=== PATIENT | female | born 1940 | race Caucasian/White ===

== ENCOUNTER 2017-10-27 22:06 | Observation (INO) ==
--- NOTE | 2017-10-27 22:15 | Emergency Department Note ---
Disposition Clinical Impression: Near syncope, Dehydration, moderate Disposition: Admitted As Inpatient Condition: Fair Instructions: Fall Prevention for Older Adults (ED) Referrals: Richard Fabian DO [Primary Care Provider] - Forms: ED Satisfaction Letter Time of Disposition: 00:00 Fall HPI - General Chief Complaint: ED Fall Stated Complaint: fall at home Time Seen by Provider: 10/27/17 22:13 Source: patient Mode of arrival: EMS Limitations: no limitations Nursing Notes Reviewed: Yes Vital Signs Reviewed: Yes - History of Present Illness HPI Narrative: 77-year-old female who presented to the emergency department via EMS, patient sustained a fall at home hitting the back of her head. Patient is very hard of hearing. She reports pain in her neck, and in the back of her skull secondary to the fall. Patient denies any loss of consciousness. Patient reports that she has been not been feeling well for about 3-4 days. Her reports that today to try to check her blood pressure at home and her blood pressure was 50/30. Patient has been running a low-grade temperature at home as well. 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 Fall From: standing Place Fall Occurred: home Loss of Consciousness: none Prolonged Down Time?: no Symptoms Prior to Fall: lightheadedness, dizziness Context: tripped/slipped Location of injury: head, neck Severity: moderate Severity scale (1-10): 5 Quality: stabbing Associated symptoms (after fall): Reports: headache, neck pain, lightheaded - Related Data Home Medications Medication Instructions Recorded Confirmed Acetaminophen/Diphenhydramine 1 tab PO HS 09/01/16 09/14/16 [Acetaminophen Pm Caplet] Aspirin Enteric Coated [Aspirin EC] 325 mg PO DAILY 09/01/16 09/14/16 Cholecalciferol (D-3) [Vitamin D] 1,000 unit PO DAILY 09/01/16 09/14/16 Diltiazem HCl [Diltiazem 24Hr Cd] 120 mg PO DAILY 09/01/16 09/14/16 HYDROcodone/Acet 5/325 mg [[place] 1 tab PO TID PRN 09/01/16 09/14/16 5-325 mg] Levothyroxine [Synthroid] 88 mcg PO DAILY 09/01/16 09/14/16 Losartan/Hydrochlorothiazide 1 tab PO DAILY 09/01/16 09/14/16 [Hyzaar 100-25 Tablet] Pravastatin Sodium [Pravachol] 20 mg PO DAILY 09/01/16 09/14/16 hydrOXYzine HCl [Hydroxyzine HCl] 50 mg PO Q6H PRN 09/01/16 09/14/16 L. Acidophilus/Pectin, [place] 1 cap PO DAILY 09/14/16 09/14/16 [Acidophilus Probiotic Capsule] cloNIDine HCl [CloNIDine HCl] 0.1 mg PO BID 09/14/16 09/14/16 Allergies Allergy/AdvReac Type Severity Reaction Status Date / Time acetaminophen [From Percocet] AdvReac See Verified 09/02/16 11:48 Comments caffeine [From Cafergot] AdvReac See Verified 09/02/16 11:48 Comments codeine AdvReac See Verified 09/02/16 11:48 Comments Ergotamine [From Cafergot] AdvReac See Verified 09/02/16 11:48 Comments Oxycodone [From Percocet] AdvReac See Verified 09/02/16 11:48 Comments All systems ED: reviewed and negative except as stated. Constitutional: Reports: other (Trauma to head and complains of pain in back of neck) Musculoskeletal: Reports: neck pain Neurological: Reports: headache, weakness Fall PMH - Past Medical History Medical history: Reports: arthritis, hyperlipidemia, hypertension, thyroid disease Psychiatric history: Reports: depression - Social History Smoking Status: Former smoker Alcohol use: Reports: occasionally Drug use: Reports: none Physical Exam - General Limitations: no limitations General appearance: alert, in no apparent distress - Head Head exam: atraumatic, normocephalic, normal inspection - Eye Eye exam: Present: normal appearance, PERRL, EOMI - Expanded Eye Exam Pupils: Left: reactive - ENT ENT exam: normal exam, normal oropharynx, mucous membranes moist - Expanded ENT Exam External ear exam: Present: normal external inspection Mouth exam: Present: normal external inspection Teeth exam: Present: normal inspection Throat exam: Present: normal inspection - Neck Neck exam: Present: normal inspection, full ROM, trachea midline - Chest Chest inspection: Present: normal inspection, symmetric chest wall rise - Respiratory Respiratory exam: Present: normal lung sounds bilaterally - Cardiovascular Cardiovascular exam: Present: regular rate, normal rhythm, normal heart sounds - Abdominal Exam Abdominal exam: Present: soft, Non-Tender. Absent: tenderness, distention, guarding, rebound, rigidity - Extremities Exam Extremities exam: Present: normal inspection, full ROM. Absent: tenderness, pedal edema - Expanded Upper Extremity Exam Shoulder exam: Present: normal inspection, full ROM Arm exam: Present: normal inspection, full ROM Elbow exam: Present: normal inspection, full ROM Forearm/Wrist exam: Present: normal inspection, full ROM Hand exam: Present: normal inspection, full ROM Vascular exam: Normal: capillary refill, radial pulse - Expanded Lower Extremity Exam Hip/Pelvis exam: Present: normal inspection, full ROM Upper leg exam: Present: normal inspection, full ROM Knee exam: Present: normal inspection, full ROM Lower leg exam: Present: normal inspection, full ROM Ankle exam: Present: normal inspection, full ROM Foot/toe exam: Present: normal inspection, full ROM Neurovascular/Tendon exam: Absent: motor deficit, sensory deficit, tendon deficit - Back Exam Back exam: Present: normal inspection, full ROM. Absent: tenderness - Neurological Exam Neurological exam: Present: alert, oriented X3 - Expanded Neurological Exam Patient oriented to: Present: person, place, time Coma Scale Eye Opening: Spontaneous Coma Scale Motor Response: Obeys Commands Coma Scale Verbal Response: Oriented Coma Scale Total: 15 - Psychiatric Psychiatric exam: Present: normal affect, normal mood - Skin Skin exam: Present: warm, dry, intact, normal color Course Vital Signs Temperature 98.7 F 10/27/17 22:07 Pulse Rate 78 10/27/17 22:07 Respiratory Rate 17 10/27/17 22:07 Blood Pressure 81/51 10/27/17 22:07 O2 Sat by Pulse Oximetry 98 10/27/17 22:07 Temperature 98.7 F 10/27/17 22:07 Pulse Rate 78 10/27/17 22:07 Respiratory Rate 17 10/27/17 22:07 Blood Pressure 81/51 10/27/17 22:07 O2 Sat by Pulse Oximetry 98 10/27/17 22:07 Oxygen Delivery Oxygen Delivery Nasal Cannula Fall - [facility] Narrative Medical decision making narrative: Patient was given a 1 L bolus of normal saline, initially I thought that possibly the patient could be septic, however her BUN/creatinine were slightly elevated which goes along more with clinical signs of dehydration. I spoke with the hospitalist Dr. Drake and patient will be admitted for overnight observation repeat chemistries in the morning. - Differential Diagnosis Likely: syncope, traumatic injury, arrhythmia - Medical Records Medical records reviewed: Yes I reviewed the patient's medical records. - Lab Data Lab results reviewed: Yes I reviewed the patient's lab results. Result diagrams: 10/27/17 22:55 10/27/17 22:55 Lab Results 10/27/17 10/27/17 10/27/17 Range/Units 22:55 22:55 22:55 WBC 7.6 (4.3-11.1) K/mcL RBC 3.91 (3.82-4.97) M/mcL Hgb 10.1 L (11.5-15.4) g/dL Hct 31.6 L (35.3-44.9) % MCV 80.8 L (83.0-100.0) fL MCH 25.8 L (28.0-33.3) pg MCHC 32.0 (31.6-35.5) g/dL RDW 16.8 H (11.5-14.5) % Plt Count 251 (140-400) K/mcL MPV 9.0 L (9.4-12.4) fL Immature Gran % 0.8 (0-4) % Seg Neutrophils % 74.0 % Lymphocytes % 11.4 % Monocytes % 9.2 % Eosinophils % 4.2 % Basophils % 0.4 % Neutrophils # 5.7 (1.6-8.9) K/mcL Lymphocytes # 0.9 (0.6-4.6) K/mcL Monocytes # 0.7 (0.0-1.3) K/mcL Eosinophils # 0.3 (0.0-0.6) K/mcL Basophils # 0.0 (0.0-0.2) K/mcL Sample Site ABG pH (7.32-7.45) pH Units ABG pCO2 (35-45) mmHg ABG pO2 (85-104) mmHg ABG HCO3 (21-27) mEq/L ABG Total CO2 (20-26) mEq/L ABG O2 Saturation (95-98) % ABG Base Excess (-2 to 3) mEq/L [place] Test O2 Delivery Device Inspired O2 (1-15=lpm [id number]=%) Sodium 137 (136-145) mEq/L Potassium 3.0 L (3.5-5.1) mEq/L Chloride 97 L (98-107) mEq/L Carbon Dioxide 29 (23-29) mEq/L BUN 32 H (8-23) mg/dL Creatinine 1.60 H (0.60-1.20) mg/dL Est GFR ( Amer) 38 L (> 60) Est GFR (Non-Af Amer) 31 L (> 60) BUN/Creatinine Ratio 20 (6-26) Glucose 122 H (70-105) mg/dL Calculated Osmolality 292 (280-300) Lactic Acid (0.5-2.2) mmol/L Calcium 10.0 (8.6-10.3) mg/dL Total Bilirubin 0.3 (0.3-1.0) mg/dL AST 12 L (13-39) Units/L ALT 9 (7-52) Units/L Alkaline Phosphatase 63 (34-104) Units/L Troponin I < 0.03 (< 0.04) ng/mL Serum Total Protein 7.0 (6.4-8.9) g/dL Albumin 3.5 (3.5-5.7) g/dL Globulin 3.5 (2.4-3.5) g/dL Albumin/Globulin Ratio 1.0 L (1.1-2.2) Urine Color (Yellow) Urine Clarity (Clear) Urine pH (5.0-8.0) pH Units Ur Specific [place] (1.010-1.025) Urine Protein (Neg-Trace) mg/dL Urine Glucose (UA) (Normal) mg/dL Urine Ketones (Negative) mg/dL Urine Blood (Negative) Urine Nitrite (Negative) Urine Bilirubin (Negative) Urine Urobilinogen (Normal) mg/dL Ur Leukocyte Esterase (Negative) 10/27/17 10/27/17 10/27/17 Range/Units 22:55 23:18 23:46 WBC (4.3-11.1) K/mcL RBC (3.82-4.97) M/mcL Hgb (11.5-15.4) g/dL Hct (35.3-44.9) % MCV (83.0-100.0) fL MCH (28.0-33.3) pg MCHC (31.6-35.5) g/dL RDW (11.5-14.5) % Plt Count (140-400) K/mcL MPV (9.4-12.4) fL Immature Gran % (0-4) % Seg Neutrophils % % Lymphocytes % % Monocytes % % Eosinophils % % Basophils % % Neutrophils # (1.6-8.9) K/mcL Lymphocytes # (0.6-4.6) K/mcL Monocytes # (0.0-1.3) K/mcL Eosinophils # (0.0-0.6) K/mcL Basophils # (0.0-0.2) K/mcL Sample Site L Brach ABG pH 7.41 (7.32-7.45) pH Units ABG pCO2 43 (35-45) mmHg ABG pO2 87 (85-104) mmHg ABG HCO3 27 (21-27) mEq/L ABG Total CO2 28 H (20-26) mEq/L ABG O2 Saturation 97 (95-98) % ABG Base Excess 2 (-2 to 3) mEq/L [place] Test N/A O2 Delivery Device Cannula Inspired O2 2.0 (1-15=lpm [id number]=%) Sodium (136-145) mEq/L Potassium (3.5-5.1) mEq/L Chloride (98-107) mEq/L Carbon Dioxide (23-29) mEq/L BUN (8-23) mg/dL Creatinine (0.60-1.20) mg/dL Est GFR ( Amer) (> 60) Est GFR (Non-Af Amer) (> 60) BUN/Creatinine Ratio (6-26) Glucose (70-105) mg/dL Calculated Osmolality (280-300) Lactic Acid 0.9 (0.5-2.2) mmol/L Calcium (8.6-10.3) mg/dL Total Bilirubin (0.3-1.0) mg/dL AST (13-39) Units/L ALT (7-52) Units/L Alkaline Phosphatase (34-104) Units/L Troponin I (< 0.04) ng/mL Serum Total Protein (6.4-8.9) g/dL Albumin (3.5-5.7) g/dL Globulin (2.4-3.5) g/dL Albumin/Globulin Ratio (1.1-2.2) Urine Color Yellow (Yellow) Urine Clarity Clear (Clear) Urine pH 5.5 (5.0-8.0) pH Units Ur Specific [place] 1.025 (1.010-1.025) Urine Protein Negative (Neg-Trace) mg/dL Urine Glucose (UA) Normal (Normal) mg/dL Urine Ketones Trace H (Negative) mg/dL Urine Blood Negative (Negative) Urine Nitrite Negative (Negative) Urine Bilirubin Negative (Negative) Urine Urobilinogen Normal (Normal) mg/dL Ur Leukocyte Esterase Negative (Negative) - Radiology Data Radiology results reviewed: Yes I reviewed the patient's radiology results. - EKG Data EKG attestation: Yes I reviewed and interpreted this EKG. EKG results narrative: Patient's EKG shows a right bundle branch block, otherwise it is a normal sinus rhythm EKG and no other acute abnormalities EKG shows normal: sinus rhythm [place]/QRS: RBBB
[2017-10-27] MEDS ORDERED: 0.9 % Sodium Chloride 1,000 ML IVC ONE ×2 (22:24→23:11)
[2017-10-27 23:05] LABS: Basophils % 0.4 %; Eosinophils # 0.3 K/mcL (0.0-0.6); Eosinophils % 4.2 %; Hematocrit 31.6 % (35.3-44.9); Hemoglobin 10.1 g/dL (11.5-15.4); Immature Granulocytes % 0.8 % (0-4); Lymphocytes # 0.9 K/mcL (0.6-4.6); Lymphocytes % 11.4 %; Mean Corpuscular Hemoglobin 25.8 pg (28.0-33.3); Mean Corpuscular Volume 80.8 fL (83.0-100.0); Monocytes # 0.7 K/mcL (0.0-1.3); Monocytes % 9.2 %; Neutrophils # 5.7 K/mcL (1.6-8.9); Platelet Count 251 K/mcL (140-400); Red Blood Count 3.91 M/mcL (3.82-4.97); Red Cell Distribution Width 16.8 % (11.5-14.5)
[2017-10-27 23:22] LABS: ABG Base Excess 2 mEq/L (-2 to 3); ABG HCO3 27 mEq/L (21-27); ABG Oxygen Saturation 97 % (95-98); ABG PCO2 43 mmHg (35-45); ABG PH 7.41 pH Units (7.32-7.45); ABG PO2 87 mmHg (85-104); ABG TCO2 28 mEq/L (20-26)
[2017-10-27 23:26] LABS: Albumin 3.5 g/dL (3.5-5.7); Bilirubin,Total 0.3 mg/dL (0.3-1.0); Globulin 3.5 g/dL (2.4-3.5)
[2017-10-27 23:50] LABS: Bilirubin,Urine Negative (Negative); Blood,Urine Negative (Negative); Clarity,Urine Clear (Clear); Color,Urine Yellow (Yellow); Glucose,Urine (UA) Normal (Normal); Ketones,Urine Trace mg/dL (Negative); Leukocyte Esterase,Urine Negative (Negative); Nitrite,Urine Negative (Negative); PH,Urine 5.5 pH Units (5.0-8.0); Protein,Urine Negative (Neg-Trace); Specific Gravity,Urine 1.025 (1.010-1.025); Urobilinogen,Urine Normal (Normal)
[2017-10-27] MEDS ORDERED: Cefepime HCl 2,000 MG in Water for inj. (sterile) 20 ML IVP STA (23:51)
[2017-10-28] MEDS ORDERED: 0.9 % Sodium Chloride 1,000 ML IVC SCH (00:40)
[2017-10-28] MEDS ORDERED: Naloxone 0.4 MG/ML INJ IVP PRN (00:40)
[2017-10-28] MEDS ORDERED: Cefepime HCl 2,000 MG in Water for inj. (sterile) 20 ML IVP SCH (06:00)
[2017-10-28 07:22] LABS: Basophils % 0.4 %; Eosinophils # 0.2 K/mcL (0.0-0.6); Eosinophils % 4.4 %; Hematocrit 26.5 % (35.3-44.9); Hemoglobin 8.3 g/dL (11.5-15.4); Immature Granulocytes % 0.5 % (0-4); Lymphocytes # 0.8 K/mcL (0.6-4.6); Lymphocytes % 15.1 %; Mean Corpuscular HGB Conc 31.3 g/dL (31.6-35.5); Mean Corpuscular Hemoglobin 25.5 pg (28.0-33.3); Mean Corpuscular Volume 81.3 fL (83.0-100.0); Mean Platelet Volume 9.1 fL (9.4-12.4); Monocytes # 0.5 K/mcL (0.0-1.3); Monocytes % 8.9 %; Neutrophils # 3.9 K/mcL (1.6-8.9); Platelet Count 209 K/mcL (140-400); Red Blood Count 3.26 M/mcL (3.82-4.97); Red Cell Distribution Width 16.9 % (11.5-14.5); Segmented Neutrophils % 70.7 %
[2017-10-28 07:46] LABS: Alanine Aminotransferase 6 Units/L (7-52); Albumin 2.7 g/dL (3.5-5.7); Alkaline Phosphatase 49 Units/L (34-104); Aspartate Amino Transferase 10 Units/L (13-39); BUN/Creatinine Ratio 22 (6-26); Bilirubin,Total 0.3 mg/dL (0.3-1.0); Blood Urea Nitrogen 21 mg/dL (8-23); Calcium 8.4 mg/dL (8.6-10.3); Carbon Dioxide 25 mEq/L (23-29); Chloride 107 mEq/L (98-107); Globulin 2.8 g/dL (2.4-3.5); Glucose 95 mg/dL (70-105); Osmolality,Calculated 289 (280-300); Potassium 3.5 mEq/L (3.5-5.1); Sodium 138 mEq/L (136-145); Total Protein 5.5 g/dL (6.4-8.9); eGFR For African Americans > 60 (> 60); eGFR For Non-African Americans 57 (> 60)
[2017-10-28] MEDS: Lactobacillus 1 EACH CAP.SPRINK PO SCH (08:51)
[2017-10-28] MEDS ORDERED: Aspirin Enteric Coated 325 MG Tablet PO SCH (09:00)
--- NOTE | 2017-10-28 13:47 | Internal Med History&Physical ---
Date of Encounter: 10/28/17 Time of Encounter: 13:15 Assessment and Plan (1) Dehydration, moderate Current visit: Yes Status: Acute She has been given IV fluids. Hyzaar will be held and further workup done as needed. (2) Hypokalemia Current visit: Yes Status: Acute Suspect secondary to Hyzaar use. Supplemental potassium was given and hypokalemia now resolved. (3) Microcytic anemia Current visit: Yes Status: Acute Suspect iron deficiency from blood loss due to aspirin use. (4) Lung nodule Current visit: Yes Status: Acute Chest x-ray emergency room showed 14 mm left lower lung nodule. In view of smoking history and weight loss I recommend chest CT be done to further evaluate. (5) Near syncope Current visit: Yes Status: Acute Resolved. Suspect secondary to hypotension. Blood pressure has now risen. Internal Medicine - H&P: HPI Chief complaint: Lightheadedness and fall Admitted From: Emergency Dept Plans for Post Hospital Care: Home History of present illness: Ms. Hagen is a 77 year old female who came to emergency room stating she had experienced lightheadedness and fallen after arising from a bent over position at home. There was no injury sustained with the fall. Blood pressure checked at home showed a reading of 56/36. The squad was called and she was brought to emergency room and evaluated and admitted to [facility] floor for ongoing care needs. She has a history of hypertension and states frequently blood pressures are greater than 170 systolic. She had a fall with syncope June 2017. She denies TN heart failure angina DVT or pulmonary embolus. Past Med Surg Social Fam HX - Past Medical History Medical history: arthritis, hyperlipidemia, hypertension, thyroid disease Psychiatric history: depression - Past Surgical History Surgical History: hysterectomy - Social History Smoking Status: Former smoker Smokeless Tobacco Status: Yes (vapor) Alcohol use: occasionally Drug use: none - Family History Mother Hx Family Cardiac Disorders: Yes Father Hx Family Cancer: Yes (bone) Internal Medicine - H&P: Meds Acetaminophen/Diphenhydramine [Acetaminophen Pm Caplet] 1 tab PO HS 09/01/16 [ History] Aspirin Enteric Coated [Aspirin EC] 325 mg PO DAILY 09/01/16 [History] Cholecalciferol (D-3) [Vitamin D] 1,000 unit PO DAILY 09/01/16 [History] Diltiazem HCl [Diltiazem 24Hr Cd] 120 mg PO DAILY 09/01/16 [History] HYDROcodone/Acet 5/325 mg [[place] 5-325 mg] 1 tab PO TID PRN 09/01/16 [History] Levothyroxine [Synthroid] 88 mcg PO DAILY 09/01/16 [History] Losartan/Hydrochlorothiazide [Hyzaar 100-25 Tablet] 1 tab PO DAILY 09/01/16 [ History] Pravastatin Sodium [Pravachol] 20 mg PO DAILY 09/01/16 [History] hydrOXYzine HCl [Hydroxyzine HCl] 50 mg PO Q6H PRN 09/01/16 [History] L. Acidophilus/Pectin, [place] [Acidophilus Probiotic Capsule] 1 cap PO DAILY [History] cloNIDine HCl [CloNIDine HCl] 0.1 mg PO BID 09/14/16 [History] 3 Allergy/AdvReac Type Severity Reaction Status Date / Time acetaminophen [From Percocet] AdvReac See Verified 09/02/16 11:48 Comments caffeine [From Cafergot] AdvReac See Verified 09/02/16 11:48 Comments codeine AdvReac See Verified 09/02/16 11:48 Comments Ergotamine [From Cafergot] AdvReac See Verified 09/02/16 11:48 Comments Oxycodone [From Percocet] AdvReac See Verified 09/02/16 11:48 Comments All Systems PM: A 10-system review of systems was performed and is negative for pertinent findings except as documented above in the HPI. Review of systems: Gen.: She states her weight has decreased 20 pounds in the past year, unintentionally Cardiovascular: As per history of present illness Respiratory: She smoked from age [age] up to 1 pack per day. She has not been diagnosed with COPD and does not use home oxygen. She denies evaluation for MARSHALL. 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 She was life flighted to [facility] and had full recovery with no permanent neurologic deficit. She denies seizures. Endocrine: She has hypothyroidism and history of hyperlipidemia. She denies diabetes. Hematology/oncology: She has history of anemia but denies internal malignancies. She has had 3 skin cancers removed. Psychiatric: She had a "nervous breakdown" many years ago. She has been treated for depression the past. She denies other mental health issues. [place] skeletal: She has DJD and history of gout. She has had several bones removed from her right wrist. She had C5-6 disc "replacement". - Constitutional Vitals: Temp Pulse Resp BP Pulse Ox 98.4 F 71 20 162/79 98 10/28/17 10:37 10/28/17 10:37 10/28/17 10:37 10/28/17 10:37 10/28/17 10:37 Exam: Gen.: She is well-developed well-nourished female lying comfortably in bed who appears in no acute distress HEENT: Head is atraumatic and normocephalic. Eyes: EOMI. There is no scleral icterus. Mouth: Mucosa is moist. Neck: Supple and nontender. There is no thyromegaly or adenopathy noted. Heart: Regular without murmurs gallops or ectopics Lungs: She has diminished breath sounds diffusely. No wheezes or crackles are heard. Abdomen: She has well-healed lower abdominal scars. No masses or guarding are noted. Extremities: There is no cyanosis edema or clubbing noted. Dorsalis pedis and posttibial pulses are trace to 1+ palpable bilaterally. Her feet are warm to touch. She has DJD changes or hands. Neurologic: Mental status: She is talkative and a good historian. Cranial nerves: Smile is symmetric. Forehead wrinkles bilaterally. Tongue protrudes midline. EOMI. Motor: There is no pronator drift. Cerebellar: Finger to nose is intact bilaterally. Skin: Warm and dry Internal Med - H&P Results - Labs CBC & Chem 7: 10/28/17 07:03 10/28/17 07:03 Labs: Short CBC 10/28/17 Range/Units 07:03 WBC 5.5 (4.3-11.1) K/mcL Hgb 8.3 L D (11.5-15.4) g/dL Hct 26.5 L (35.3-44.9) % Plt Count 209 (140-400) K/mcL Neutrophils # 3.9 (1.6-8.9) K/mcL BMP 10/28/17 07:03 Sodium 138 Potassium 3.5 Chloride 107 Carbon Dioxide 25 BUN 21 Creatinine 0.95 Glucose 95 Calcium 8.4 L Liver Function 10/28/17 Range/Units 07:03 Total Bilirubin 0.3 (0.3-1.0) mg/dL AST 10 L (13-39) Units/L ALT 6 L (7-52) Units/L Alkaline Phosphatase 49 (34-104) Units/L Albumin 2.7 L (3.5-5.7) g/dL
[2017-10-28] MEDS: Diltiazem CD (24hr) 240 MG CAPSULE PO SCH (14:25)
[2017-10-28] MEDS: *HR* HYDROcodone/Acet 5/325 mg TABLET PO PRN (15:59)
[2017-10-29] MEDS: *HR* HYDROcodone/Acet 5/325 mg TABLET PO PRN (06:26)
[2017-10-29 07:40] LABS: Basophils % 0.1 %; Eosinophils # 0.3 K/mcL (0.0-0.6); Eosinophils % 3.8 %; Hematocrit 33.6 % (35.3-44.9); Hemoglobin 10.8 g/dL (11.5-15.4); Immature Granulocytes % 0.5 % (0-4); Lymphocytes # 0.8 K/mcL (0.6-4.6); Lymphocytes % 10.2 %; Mean Corpuscular HGB Conc 32.1 g/dL (31.6-35.5); Mean Corpuscular Hemoglobin 25.6 pg (28.0-33.3); Mean Corpuscular Volume 79.6 fL (83.0-100.0); Mean Platelet Volume 9.1 fL (9.4-12.4); Monocytes # 0.6 K/mcL (0.0-1.3); Monocytes % 7.7 %; Neutrophils # 6.4 K/mcL (1.6-8.9); Platelet Count 248 K/mcL (140-400); Red Blood Count 4.22 M/mcL (3.82-4.97); Red Cell Distribution Width 16.4 % (11.5-14.5); Segmented Neutrophils % 77.7 %
[2017-10-29 07:55] LABS: BUN/Creatinine Ratio 11 (6-26); Blood Urea Nitrogen 8 mg/dL (8-23); Calcium 9.7 mg/dL (8.6-10.3); Carbon Dioxide 30 mEq/L (23-29); Chloride 98 mEq/L (98-107); Glucose 124 mg/dL (70-105); Osmolality,Calculated 282 (280-300); Potassium 3.4 mEq/L (3.5-5.1); Sodium 136 mEq/L (136-145); eGFR For African Americans > 60 (> 60); eGFR For Non-African Americans > 60 (> 60)
[2017-10-29] MEDS ORDERED: Aspirin 81 MG TAB.CHEW PO SCH (09:00)
[2017-10-29 09:21] VITALS: BP 143/66
[2017-10-29] MEDS: Lactobacillus 1 EACH CAP.SPRINK PO SCH (09:22)
[2017-10-29] MEDS: Diltiazem CD (24hr) 240 MG CAPSULE PO SCH (09:22)
[2017-10-29 09:24] LABS: % Iron Saturation 7 % (15-50); Ferritin 28 ng/ml (10-120); Iron 24 mcg/dL (50-170); Transferrin 242 mg/dL (203-362)
--- NOTE | 2017-10-29 09:43 | Discharge Summary ---
Orders not resulted at time of discharge: Pending orders 10/29/17 07:25 Folate AM 0400 Vitamin B12 AM 0400 Date of Encounter: 10/29/17 Time of Encounter: 09:30 - Discharge Diagnosis (1) Dehydration, moderate Priority: Primary Status: Resolved (2) Near syncope Priority: Secondary Status: Resolved (3) Hypokalemia Priority: Secondary Status: Acute (4) Hypomagnesemia Priority: Secondary Status: Acute (5) Iron deficiency anemia Priority: Secondary Status: Chronic Qualifiers: Iron deficiency anemia type: chronic blood loss Qualified Code(s): D50.0 - Iron deficiency anemia secondary to blood loss (chronic) Hospital course: Ms. Hagen is a 77 year old female who came to emergency room stating she had experienced lightheadedness and fallen after arising from a bent over position at home. There was no injury sustained with the fall. Blood pressure checked at home showed a reading of 56/36. The squad was called and she was brought to emergency room and evaluated and admitted to [facility] floor for ongoing care needs. Initial orders were written by the emergency room physician. I saw her on October 28 and performed the history and physical. She was given IV fluids and Hyzaar was discontinued. She had significant improvement with BUN and creatinine decreasing to 8 and 0.70 by the day of discharge with estimated GFR greater than 60. She will remain off Hyzaar at discharge and blood pressure can be monitored. Anemia testing showed iron 24, transferrin saturation 7%, transferrin 242, and ferritin 28. She will be started on ferrous sulfate with vitamin C. B12 and folic acid levels are pending at time of discharge. Hemoglobin was stable at 10.8 on day of discharge. Supplemental potassium was given and hypokalemia improved. She will remain off Hyzaar as per above. Continue with potassium supplement for 5 days. Magnesium level returned low at 1.4. She will be given magnesium oxide for 5 days. I suspect this was due to Hyzaar use also. Chest CT was done to follow-up on possible nodule seen on chest x-ray. No worrisome pathology was seen on chest CT and no further workup is needed at this time. On October 29 she felt stable for discharge home. She will follow with her PCP Dr. Richard Fabian within 1 week. - Time Spent with Patient Total time spent providing and/or coordinating discharge services: - Discharge Medications Prescriptions: Ascorbic Acid [Vitamin C] 500 mg PO DAILY #30 tablet Aspirin 81 mg PO DAILY 365 Days tab.chew Ferrous Sulfate 325 mg PO DAILY #30 tablet Magnesium Oxide [Mag-Ox] 400 mg PO DAILY #5 tablet Potassium Chloride 10 meq PO BIDWM #10 tab.er.prt Home Medications: Acetaminophen/Diphenhydramine [Acetaminophen Pm Caplet] 1 tab PO HS 09/01/16 [ History] Cholecalciferol (D-3) [Vitamin D] 1,000 unit PO DAILY 09/01/16 [History] Diltiazem HCl [Diltiazem 24Hr Cd] 120 mg PO DAILY 09/01/16 [History] HYDROcodone/Acet 5/325 mg [[place] 5-325 mg] 1 tab PO TID PRN 09/01/16 [History] Levothyroxine [Synthroid] 88 mcg PO DAILY 09/01/16 [History] Pravastatin Sodium [Pravachol] 20 mg PO DAILY 09/01/16 [History] hydrOXYzine HCl [Hydroxyzine HCl] 50 mg PO Q6H PRN 09/01/16 [History] L. Acidophilus/Pectin, [place] [Acidophilus Probiotic Capsule] 1 cap PO DAILY [History] cloNIDine HCl [CloNIDine HCl] 0.2 mg PO BID 09/14/16 [History] Ascorbic Acid [Vitamin C] 500 mg PO DAILY #30 tablet 10/29/17 [Rx] Aspirin 81 mg PO DAILY 365 Days tab.chew 10/29/17 [Rx] Ferrous Sulfate 325 mg PO DAILY #30 tablet 10/29/17 [Rx] Magnesium Oxide [Mag-Ox] 400 mg PO DAILY #5 tablet 10/29/17 [Rx] Potassium Chloride 10 meq PO BIDWM #10 tab.er.prt 10/29/17 [Rx] Allergies/Adverse Reactions: 3 Allergy/AdvReac Type Severity Reaction Status Date / Time acetaminophen [From Percocet] AdvReac See Verified 09/02/16 11:48 Comments caffeine [From Cafergot] AdvReac See Verified 09/02/16 11:48 Comments codeine AdvReac See Verified 09/02/16 11:48 Comments Ergotamine [From Cafergot] AdvReac See Verified 09/02/16 11:48 Comments Oxycodone [From Percocet] AdvReac See Verified 09/02/16 11:48 Comments Date of admission: 10/28/17 00:18 Primary care physician: Richard Fabian DO - Constitutional Vitals: Temp Pulse Resp BP Pulse Ox 97.6 F 84 16 143/66 93 10/29/17 04:57 10/29/17 09:21 10/29/17 04:57 10/29/17 09:21 10/29/17 09:21 - Patient Status Disposition: Home, Self-Care Condition: Fair Functional capacity at discharge: independent ambulation Overall status at discharge: patient is progressing back to baseline - Discharge Instructions Follow Up With: Richard Fabian DO [Primary Care Provider] - 1 week - Diet and Activity Activity: resume usual activities as tolerated Diet: advance to your usual diet
[2017-10-29 09:52] LABS: Folate 14.2 ng/mL (3.0-16.0)
--- NOTE | 2017-10-29 12:38 | Electrocardiograph Report ---
[address] [place], [place] [address] Test Date: 2017-10-27 Pat Name: Rekha Hagen Department: [id number] Room: [facility] Gender: F Shuttle Spotter: Diane : 1940 Requested By: Brianna Gaxiola Order Number: [id number] Reading MD: Van High Measurements Intervals [place] Rate: 71 P: 55 AR: 185 QRS: 35 QRSD: 149 T: 8 QT: 447 QTc: 470 Interpretive Statements SINUS RHYTHM RIGHT BUNDLE BRANCH BLOCK Electronically Signed On 10-29-2017 12:37:12 EDT by Van High
== END 2017-10-29 10:15 | disposition home or self-care (01) ==
LOC: INPPIK 22:06 → EMEROOPIK 22:06 → INPPIK 10-28 01:05
PROVIDERS: ADMIT Internal Medicine; ATTEND Internal Medicine